=== PATIENT | male | born 1995 | race Caucasian/White ===

== ENCOUNTER 2024-03-23 04:28 | Emergency (ER) | payer BC ==
[2024-03-23] MEDS: FAMOTIDINE 20 MG/2 ML VIAL IV STA (05:08)
--- NOTE | 2024-03-23 05:27 | ED ---
General Adult HPI - General Source: patient, RN notes reviewed, old records reviewed Mode of arrival: ambulatory Limitations: no limitations <Ventura Olvera - Last Filed: 03/23/24 06:37> <Nahomy Busch - Last Filed: 03/27/24 06:30> - General Chief complaint: Chest Pain Stated complaint: Chest pain Time Seen by Provider: 03/23/24 04:39 - History of Present Illness Initial comments: 28-year-old male presenting with upper chest pain. Pain is worse with deep inspiration. No diaphoresis. No vomiting. Pain was present when the patient woke this morning. No prior history of cardiac disease. No sore throat. No fever. No lower extremity pain or swelling. (Ventura Olvera) - Related Data Home Medications Medication Instructions Recorded Confirmed No Known Home Medications 03/23/24 03/23/24 Allergies Allergy/AdvReac Type Severity Reaction Status Date / Time No Known Allergies Allergy Verified 03/23/24 07:36 Review of Systems ROS Other: All systems not noted in ROS Statement are negative. <Ventura Olvera - Last Filed: 03/23/24 06:37> ROS Other: All systems not noted in ROS Statement are negative. <Nahomy Busch - Last Filed: 03/27/24 06:30> ROS Statement: Those systems with pertinent positive or pertinent negative responses have been documented in the HPI. Past Medical History Past Medical History: Asthma Additional Past Medical History / Comment(s): covid History of Any Multi-Drug Resistant Organisms: None Reported Past Surgical History: Orthopedic Surgery Additional Past Surgical History / Comment(s): right ankle Past Psychological History: No Psychological Hx Reported Smoking Status: Never smoker Past Alcohol Use History: Occasional Past Drug Use History: None Reported <Ventura Olvera - Last Filed: 03/23/24 06:37> General Exam Limitations: no limitations General appearance: alert, in no apparent distress Head exam: Present: atraumatic, normocephalic Eye exam: Present: normal appearance, PERRL ENT exam: Present: normal exam Neck exam: Present: normal inspection Respiratory exam: Present: normal lung sounds bilaterally. Absent: respiratory distress, wheezes Cardiovascular Exam: Present: regular rate, normal rhythm GI/Abdominal exam: Present: soft. Absent: distended, tenderness, guarding Extremities exam: Present: normal inspection, normal capillary refill. Absent: pedal edema, calf tenderness Neurological exam: Present: alert, oriented X3, CN II-XII intact. Absent: motor sensory deficit Psychiatric exam: Present: normal affect, normal mood <Ventura Olvera N - Last Filed: 03/23/24 06:37> Course Vital Signs 03/23/24 03/23/24 03/23/24 04:35 05:33 06:26 Temperature 98.1 F Pulse Rate 110 H 87 90 Pulse Rate [ Pulse Oximetery ] Respiratory 18 18 18 Rate Blood Pressure 141/92 143/92 136/74 Blood Pressure [Right Arm] O2 Sat by Pulse 98 95 97 Oximetry 03/23/24 03/23/24 07:50 08:42 Temperature 98.4 F Pulse Rate 77 Pulse Rate [ 81 Pulse Oximetery ] Respiratory 181 H 18 Rate Blood Pressure 142/84 Blood Pressure 143/76 [Right Arm] O2 Sat by Pulse 97 95 Oximetry Medical Decision Making - Lab Data Result diagrams: 03/23/24 04:52 03/23/24 04:52 <Ventura Olvera N - Last Filed: 03/23/24 06:37> - Lab Data Result diagrams: 03/23/24 04:52 03/23/24 04:52 <Nahomy Busch - Last Filed: 03/27/24 06:30> - Medical Decision Making Was pt. sent in by a medical professional or institution ([facility], [employer], urgent care, hospital, or fci...) When possible be specific @ -No Did you speak to anyone other than the patient for history (EMS, parent, family, police, friend...)? What history was obtained from this source @ -No Did you review nursing and triage notes (agree or disagree)? Why? @ -I reviewed and agree with nursing and triage notes Were old charts reviewed (outside hosp., previous admission, EMS record, old EKG, old radiological studies, urgent care reports/EKG's, fci records)? Report findings @ -No old charts were reviewed Differential Chest Pain: Stable Angina, Unstable Angina, STEMI, NSTEMI Aortic Dissection, Pneumothorax, Musculoskeletal, Esophageal Spasm GERD, Cholecystitis, Pancreatitis, Zoster, this is not meant to be an all-inclusive list. EKG interpreted by me (3pts min.). @ -EKG: Sinus rhythm rate of 95, PA interval 158, QRS duration 102, QTc [address] segment elevation. X-rays interpreted by me (1pt min.). @ -[Chest x-ray negative for acute cardiopulmonary disease CT interpreted by me (1pt min.). @ -None done U/S interpreted by me (1pt. min.). @ -None done What testing was considered but not performed or refused? (CT, X-rays, U/S, labs)? Why? @ -None What meds were considered but not given or refused? Why? @ -None Did you discuss the management of the patient with other professionals (professionals i.e. , PA, STR[employer]OR, lab, RT, psych nurse, vp digital marketing social media and crm, food order expediter, teacher, reserve officer, bottle caser)? Give summary @ -No Was smoking cessation discussed for >3mins.? @ -No Was critical care preformed (if so, how long)? @ -No Were there social determinants of health that impacted care today? How? (Homelessness, low income, unemployed, alcoholism, drug addiction, transportation, low edu. Level, literacy, decrease access to med. care, [facility], rehab)? @ -No Was there de-escalation of care discussed even if they declined (Discuss DNR or withdrawal of care, Hospice)? DNR status @ -No What co-morbidities impacted this encounter? (DM, HTN, Smoking, COPD, CAD, Cancer, CVA, ARF, Chemo, Hep., AIDS, mental health diagnosis, sleep apnea, morbid obesity)? @ -None Was patient admitted / discharged? Hospital course, mention meds given and route, prescriptions, significant lab abnormalities, going to OR and other pertinent info. @ -Patient care signed out at shift change to Dr. Busch awaiting repeat cardiac enzyme. CBC, CMP, D-dimer and initial troponin is unremarkable. (Ventura Olvera) Was patient admitted / discharged? Hospital course, mention meds given and route, prescriptions, significant lab abnormalities, going to OR and other pertinent info. @ -Patient signed out to me pending laboratory studies. Second troponin was negative. Patient be discharged home at this time and instructed to follow-up with his primary care doctor and recommend stress test, echo and Holter monitoring. Return for any new or worsening symptoms Undiagnosed new problem with uncertain prognosis? @ -No Drug Therapy requiring intensive monitoring for toxicity (Heparin, Nitro, Insulin, Cardizem)? @ -No Were any procedures done? @ -No Diagnosis/symptom? @ -Acute pleuritic chest pain Acute, or Chronic, or Acute on Chronic? @ -Acute Uncomplicated (without systemic symptoms) or Complicated (systemic symptoms)? @ -complicated Side effects of treatment? @ -No Exacerbation, Progression, or Severe Exacerbation? @ -No Poses a threat to life or bodily function? How? (Chest pain, [place], [place], pneumonia, PE, COPD, DKA, ARF, appy, cholecystitis, CVA, Diverticulitis, Homicidal, Suicidal, threat to staff... and all critical care pts) @ -No (Nahomy Busch) - Lab Data Lab Results 03/23/24 03/23/24 03/23/24 Range/Units 04:52 04:52 04:52 WBC 10.5 (3.8-10.6) k/uL RBC 5.36 (4.30-5.90) m/uL Hgb 16.8 (13.0-17.5) gm/dL Hct 48.9 (39.0-53.0) % MCV 91.2 (80.0-100.0) fL MCH 31.2 (25.0-35.0) pg MCHC 34.3 (31.0-37.0) g/dL RDW 13.0 (11.5-15.5) % Plt Count 227 (150-450) k/uL MPV 7.1 Neutrophils % 68 % Lymphocytes % 19 % Monocytes % 7 % Eosinophils % 4 % Basophils % 1 % Neutrophils # 7.1 (1.3-7.7) k/uL Lymphocytes # 2.0 (1.0-4.8) k/uL Monocytes # 0.7 (0-1.0) k/uL Eosinophils # 0.4 (0-0.7) k/uL Basophils # 0.1 (0-0.2) k/uL PT 11.0 (10.0-12.5) sec INR 1.0 (<1.2) APTT 27.3 (22.0-30.0) sec D-Dimer <0.17 (<0.60) mg/L FEU Sodium 140 (137-145) mmol/L Potassium 4.3 (3.5-5.1) mmol/L Chloride 109 H (98-107) mmol/L Carbon Dioxide 23 (22-30) mmol/L Anion Gap 8 mmol/L BUN 14 (9-20) mg/dL Creatinine 1.05 (0.66-1.25) mg/dL Est GFR (CKD-EPI)AfAm >90 (>60 ml/min/1.73 sqM) Est GFR (CKD-EPI)NonAf >90 (>60 ml/min/1.73 sqM) Glucose 114 H (74-99) mg/dL Calcium 9.2 (8.4-10.2) mg/dL Magnesium 2.0 (1.6-2.3) mg/dL Total Bilirubin 1.0 (0.2-1.3) mg/dL AST 41 (17-59) U/L ALT 45 (4-49) U/L Alkaline Phosphatase 46 (38-126) U/L Troponin I (0.000-0.034) ng/mL Total Protein 6.7 (6.3-8.2) g/dL Albumin 4.4 (3.5-5.0) g/dL 03/23/24 03/23/24 Range/Units 04:52 07:46 WBC (3.8-10.6) k/uL RBC (4.30-5.90) m/uL Hgb (13.0-17.5) gm/dL Hct (39.0-53.0) % MCV (80.0-100.0) fL MCH (25.0-35.0) pg MCHC (31.0-37.0) g/dL RDW (11.5-15.5) % Plt Count (150-450) k/uL MPV Neutrophils % % Lymphocytes % % Monocytes % % Eosinophils % % Basophils % % Neutrophils # (1.3-7.7) k/uL Lymphocytes # (1.0-4.8) k/uL Monocytes # (0-1.0) k/uL Eosinophils # (0-0.7) k/uL Basophils # (0-0.2) k/uL PT (10.0-12.5) sec INR (<1.2) APTT (22.0-30.0) sec D-Dimer (<0.60) mg/L FEU Sodium (137-145) mmol/L Potassium (3.5-5.1) mmol/L Chloride (98-107) mmol/L Carbon Dioxide (22-30) mmol/L Anion Gap mmol/L BUN (9-20) mg/dL Creatinine (0.66-1.25) mg/dL Est GFR (CKD-EPI)AfAm (>60 ml/min/1.73 sqM) Est GFR (CKD-EPI)NonAf (>60 ml/min/1.73 sqM) Glucose (74-99) mg/dL Calcium (8.4-10.2) mg/dL Magnesium (1.6-2.3) mg/dL Total Bilirubin (0.2-1.3) mg/dL AST (17-59) U/L ALT (4-49) U/L Alkaline Phosphatase (38-126) U/L Troponin I 0.030 <0.012 (0.000-0.034) ng/mL Total Protein (6.3-8.2) g/dL Albumin (3.5-5.0) g/dL Disposition <Ventura Olvera - Last Filed: 03/23/24 06:37> Is patient prescribed a controlled substance at d/c from ED?: No Time of Disposition: 08:33 <Nahomy Busch - Last Filed: 03/27/24 06:30> Clinical Impression: Chest pain Disposition: HOME SELF-CARE Condition: Stable Instructions (If sedation given, give patient instructions): Chest Pain (ED) Additional Instructions: Please follow-up with your primary care doctor and have an echo, stress test and Holter monitoring performed. Return for any new or worsening symptoms Referrals: Erickson Perez DO [Primary Care Provider] - 1-2 days
--- NOTE | 2024-03-23 05:36 | XR ---
EXAMINATION TYPE: XR chest 2V DATE OF EXAM: 03/23/2024 COMPARISON: NONE HISTORY: Chest pain. TECHNIQUE: Frontal and lateral views of the chest are obtained. FINDINGS: Slightly elevated left hemidiaphragm is present. There is no suspicious focal air space op acity, pleural effusion, or pneumothorax seen. The cardiac silhouette size is within normal limits. The osseous structures are intact. IMPRESSION: No acute process.
[2024-03-23 05:43] LABS: Basophils # (A) 0.1 k/uL (0-0.2); Basophils % (A) 1 %; Eosinophils # (A) 0.4 k/uL (0-0.7); Eosinophils % (A) 4 %; HCT 48.9 % (39.0-53.0); HGB 16.8 gm/dL (13.0-17.5); Lymphocytes % (A) 19 %; MCH 31.2 pg (25.0-35.0); MCHC 34.3 g/dL (31.0-37.0); MCV 91.2 fL (80.0-100.0); Mean Platelet Volume 7.1; Monocytes # (A) 0.7 k/uL (0-1.0); Monocytes % (A) 7 %; Neutrophils # (A) 7.1 k/uL (1.3-7.7); Neutrophils % (A) 68 %; Platelet Count 227 k/uL (150-450); RBC 5.36 m/uL (4.30-5.90); WBC 10.5 k/uL (3.8-10.6)
[2024-03-23 06:04] LABS: ALT 45 U/L (4-49); African American GFR (CKD) >90 (>60 ml/min/1.73 sqM); Albumin 4.4 g/dL (3.5-5.0); Anion Gap 8 mmol/L; Blood Urea Nitrogen 14 mg/dL (9-20); Calcium 9.2 mg/dL (8.4-10.2); Carbon Dioxide 23 mmol/L (22-30); Chloride 109 mmol/L (98-107); Glucose 114 mg/dL (74-99); Non-African American GFR(CKD) >90 (>60 ml/min/1.73 sqM); Sodium 140 mmol/L (137-145); Total Protein 6.7 g/dL (6.3-8.2)
[2024-03-23 06:06] LABS: AST 41 U/L (17-59); Alkaline Phosphatase 46 U/L (38-126); Potassium 4.3 mmol/L (3.5-5.1)
[2024-03-23 06:25] LABS: Partial Thromboplastin Time 27.3 sec (22.0-30.0)
[2024-03-23] MEDS: KETOROLAC 15 MG/ML 1 ML VIAL IVP STA (06:36)
[2024-03-23] MEDS: ASPIRIN 325 MG TAB PO STA (06:36)
[2024-03-23 08:45] VITALS: BP 143/76; PULSE 81; RESP 18; TEMP 98.4
== END 2024-03-23 08:54 | disposition home or self-care (01) ==
LOC: EC 04:28
DX: R07.89 Other chest pain (principal)
CPT/HCPCS: 36415; 93005; 85379; 80053; 83735; 84484; 85025; 85610; 85730; 71046; 99285; 96374; 96375; J3490; J1885

== ENCOUNTER → 2024-04-15 | Outpatient (CLI) | payer BC ==
--- NOTE | 2024-04-16 16:59 | CA ---
Transthoracic Echo Report Name: Ventura Sherman Age: 28 Gender: M : 1995 Exam Date: 04/15/2024 13:03 Exam Location: [place] [facility] Ht (in): 75 Wt (lb): 315 Ordering Physician: Erickson Perez DO Attending/Referring Phys: Neckties Painter Farideh Maria RDCS Procedure CPT: Indications: R0789 OTHER CHEST PAIN Cardiac Hx: Technical Quality: Fair Contrast 1: Total Dose (mL): Contrast 2: Total Dose (mL): MEASUREMENTS (Male / Female) Normal Values 2D ECHO LV Diastolic Diameter PLAX 3.7 cm 4.2 - 5.9 / 3.9 - 5.3 cm LV Systolic Diameter PLAX 2.6 cm IVS Diastolic Thickness 1.3 cm 0.6 - 1.0 / 0.6 - 0.9 cm LVPW Diastolic Thickness 1.3 cm 0.6 - 1.0 / 0.6 - 0.9 cm LV Relative Wall Thickness 0.7 RV Internal Dim ED PLAX 3.4 cm LA Volume 68.6 cm??? 18 - 58 / 22 - 52 cm??? LA Volume Index 24.5 cm???/m??? 16 - 28 cm???/m??? M-MODE Aortic Root Diameter MM 3.8 cm LA Systolic Diameter MM 4.2 cm LA Ao Ratio MM 1.1 AV Cusp Separation MM 2.5 cm DOPPLER AV Peak Velocity 137.4 cm/s AV Peak Gradient 7.6 mmHg AV Mean Velocity 92.0 cm/s AV Mean Gradient 4.1 mmHg AV Velocity Time Integral 25.2 cm LVOT Peak Velocity 105.6 cm/s LVOT Peak Gradient 4.5 mmHg LVOT Velocity Time Integral 22.5 cm MV Area PHT 3.9 cm??? Mitral E Point Velocity 88.7 cm/s Mitral A Point Velocity 56.4 cm/s Mitral E to A Ratio 1.6 MV Deceleration Time 195.7 ms MV E' Velocity 11.8 cm/s Mitral E to MV E' Ratio 7.5 TR Peak Velocity 218.7 cm/s TR Peak Gradient 19.1 mmHg Right Ventricular Systolic Press 23.6 mmHg FINDINGS Left Ventricle Mildly increased left ventricular wall thickness. Left ventricular cavity size normal. Normal left ventricular systolic function with no obvious regional wall motion abnormalities. Left ventricular ejection fraction is estimated at 55-60 %. Indeterminate diastolic function Right Ventricle Normal right ventricular size and function. Right ventricular systolic pressure within normal limits. Right Atrium Normal right atrial size. Left Atrium Mildly increased left atrial volume. Mitral Valve Structurally normal mitral valve. Trace mitral regurgitation. Aortic Valve Trileaflet aortic valve. No aortic valve stenosis or regurgitation. Tricuspid Valve Structurally normal tricuspid valve. Mild tricuspid regurgitation. Pulmonic Valve Structurally normal pulmonic valve. Pericardium No pericardial effusion. Aorta Normal size aortic root and proximal ascending aorta. CONCLUSIONS LVEF 55 to 60% Mild concentric LVH Normal LV cavity size and wall thickness Normal RV size and systolic function, RVSP estimated at less than 25 mmHg No significant valve dysfunction Previewed by: Dr Shree Chu (Electronically Signed) Final Date: 16 April 2024 16:58
== END | disposition home or self-care (01) ==
LOC: RADECHMAIN 12:55
PROVIDERS: ATTEND Family Medicine
DX: R93.0 Abnormal findings on diagnostic imaging of skull and head, not elsewhere classified (principal)
CPT/HCPCS: 93306

== ENCOUNTER → 2024-04-21 | Outpatient (CLI) | payer BC ==
--- NOTE | 2024-04-21 10:09 | CA ---
Exercise Stress Test Report Name: Ventura Sherman Exam Date: 04/21/2024 08:47 Exam Location: [place] Stress Ht (in): 73 Wt (lb): 315 BSA: 2.61 Ordering Phys: Tammy Hartmann DO Referring Phys: TAMMY HARTMANN Technologist: Isabel Merritt RDCS Age: 28 Gender: M : 1995 Procedure CPT: Indications: R07.89 other chest pain ICD-10 Codes: Patient History: CP, FAMILY HX Medications: NONE Meds past 24 hrs: Pretest Chest Pain: NONE STRESS TEST Sanchez Protocol Exercise Duration (min:sec): 09:[address] Depressions (mm): 0 Angina Score: 0 Márquez Score: 9.42 Resting HR (bpm): 91 Peak HR (bpm): 165 Resting BP (mmHg): 143 / 102 Peak BP (mmHg): 148 / 97 MPHR: 194 Target HR: 165 % MPHR: 85 METS: 10.9 Total Dose: Peak Dose: Atropine: Double Product: 46563 BP Response: Stress Termination: Reached target heart rate Stress Symptoms: No chest pain or symptoms Stress Summary: The patient's target heart rate was achieved, The hemodynamic response to exercise was normal ECG ANALYSIS Resting ECG: Sinus rhythm. Normal conduction. No arrhythmias. Normal repolarization. Stress ECG: No ECG evidence of ischemia with exercise. CONCLUSIONS Patient falls into low-risk group (DTS >= +5). This associates the patient with an annual CV mortality <= 0.5%. Exercise capacity very good at >[address] segment response to stress. Dr. Eb Champagne MD (Electronically Signed) Final Date: 21 April 2024 10:09
== END | disposition home or self-care (01) ==
LOC: RADNMMAIN 08:25
PROVIDERS: ATTEND Family Medicine
DX: R07.89 Other chest pain (principal)
CPT/HCPCS: 93017